=== PATIENT | male | born 1990 | race Caucasian/White ===

== ENCOUNTER 2017-03-06 03:16 | Emergency (ER) | payer MEDICAID, OTHER ==
[~2017-03-06] VITALS: Ht 175.3 cm; Wt 80.8 kg
[2017-03-06 03:21] VITALS: Ht 175.3 cm; Wt 80.8 kg
[2017-03-06] MEDS ORDERED: LIDOCAINE 1%/EPI 30 ML INJ INJ STA (03:28)
--- NOTE | 2017-03-06 03:39 | ERD ---
ER Documentation Chief Complaint Chief Complaint Foreign body right ear HPI The patient is a 26-year-old male who presents to the Emergency Department with complaint of foreign body to the right ear. The patient reports that he has been experiencing a moving foreign body sensation to the right ear, which he believes is secondary to an insect, for the past 24 hours. He denies any otorrhea or bloody discharge from the ear. Denies any change in hearing. Denies pain. Denies any other complaints at this time. ROS All systems reviewed and are negative except as per history of present illness. Allergies Allergies: Coded Allergies: No Known Allergy (Unverified , 03/06/17) PMhx/Soc Medical and Surgical Hx: pt denies Medical Hx, pt denies Surgical Hx Hx Alcohol Use: No Hx Substance Use: No Hx Tobacco Use: No Smoking Status: Never smoker Physical Exam Vitals Vital Signs Date Time Temp Pulse Resp B/P Pulse Ox O2 Delivery O2 Flow Rate FiO2 03/06/17 03:21 98.0 67 20 141/93 98 Physical Exam Const: Well-developed, well-nourished, in no acute distress. Head: Atraumatic Eyes: Normal Conjunctiva ENT: Insect noted in the right external auditory canal. Tympanic membrane visualized with no erythema, effusion or dulling of the light reflex bilaterally. No otorrhea or bloody discharge. No tympanic membrane perforation. No mastoid tenderness. Clear oropharynx. Moist mucous membranes. Neck: Supple. Full range of motion. Resp: Clear to auscultation bilaterally Cardio: Regular rate and rhythm, no murmurs Skin: No petechiae or rashes Ext: No cyanosis, or edema Neur: Awake and alert Psych: Normal Mood and Affect Results 24 hrs Current Medications Medications (Trade) Dose Ordered Sig/Kristin Route PRN Reason Start Time Stop Time Status Last Admin Dose Admin Lidocaine/ Epinephrine (Xylocaine 1%/ Epi (Pf)) 30 ml ONCE STAT INJ 03/06/17 03:28 03/06/17 03:29 DC 03/06/17 03:32 Procedures/MDM PROCEDURE: EAR IRRIGATION/FOREIGN BODY REMOVAL INDICATION: Foreign body right ear. CONSENT: Consent was obtained from the patient prior to the procedure. Indications, risks, and benefits were explained at length. PROCEDURE SUMMARY: A timeout protocol was performed prior to initiating the procedure. Right ear initially irrigated with Lidocaine 1% with epinephrine, and then irrigated with lukewarm water. Foreign body/insect irrigated and removed. Tympanic membrane within normal limits. The patient tolerated the procedure well without complications. Standard post- procedure care was explained and return precautions were given. MEDICAL DECISION MAKING: This is a 26-year-old male presenting to the Emergency Department with a foreign body in his right ear, an insect, that was removed successfully. The ear is clean, dry and intact with no evidence of infection, bleeding, erythema or drainage. The patient tolerated the procedure well. The patient continues to be stable, with no evidence of infection or complication. At this time, the patient is suitable for outpatient management, and he will be discharged home with strict return precautions for signs of deteriorating or worsening condition. He is advised to follow up with a primary care provider in 2-3 days for reevaluation and further management, or return to the ER sooner for worsening symptoms. I shared my medical decision making and plan with the patient and he verbally understands and agrees with the plan for further observation and care as an outpatient. At the time of discharge all questions were answered. Departure Diagnosis: Primary Impression: Foreign body in right ear Encounter type: initial encounter Qualified Code: T16.1XXA - Foreign body of right ear, initial encounter Condition: Stable Patient Instructions: Foreign Body, Ear Canal (Removed) Additional Instructions: Call your primary care doctor TOMORROW for an appointment during the next 2-3 days.See the doctor sooner or return here if your condition worsens before your appointment time. PARISA LAYTON PA-C Mar 06, 2017 03:39
== END 2017-03-06 03:42 | disposition home or self-care (01) ==
LOC: FTE 03:16
DX: T16.1XXA Foreign body in right ear, initial encounter (principal); X58.XXXA Exposure to other specified factors, initial encounter; Y92.9 Unspecified place or not applicable
CPT/HCPCS: Z7502; Z7610; 99282